=== PATIENT | female | born 1970 | race Caucasian/White ===

== ENCOUNTER → 2018-03-08 13:45 | Outpatient (CLI) | payer BC, SELFPAY ==
--- NOTE | 2018-03-08 | DI.ECHO.S_ITS ---
[facility] +---------+ : : [address] : : : : [id number] : : : : Phone: [phone]+ Echocardiogram Report + + :Name: JERARDO TOM Study Date: 03/08/2018 Height: 67 in : :[facility] Weight: 142 lb : : Gender: Female BSA: 1.7 m2 : :: 1970 Age: 47 yrs BP: 136/78 mmHg: :Reason For Study: Palpitations : : Performed By: Dali Ramos : :Referring: EAN ABBOTT : + + Interpretation Summary 1) Normal left ventricular thickness, size, wall motion, and systolic function (EF 60-65%). 2) Normal right ventricular size and function. 3) No significant valvular abnormalities. 4) No prior Echo available for comparison. Procedure: A two-dimensional transthoracic echocardiogram with color flow and Doppler was performed. The study quality was technically adequate. There is no prior echocardiogram noted for this patient. The patient was in normal sinus rhythm during the exam. Left Ventricle: The left ventricle is normal in size. There is normal left ventricular wall thickness. The ejection fraction is estimated to be 60-65%. Left ventricular systolic function is normal without focal wall motion abnormalities. Right Ventricle: The right ventricle is normal in size and function. Atria: The left atrium is mildly dilated. There has been no significant change since the previous study. The interatrial septum is intact with no evidence for an atrial septal defect. Mitral Valve: The mitral valve is normal in structure and function. There is no mitral regurgitation noted. Aortic Valve: The aortic valve opens well. No aortic regurgitation is present. Tricuspid Valve: The tricuspid valve is normal in structure and function. There is trace tricuspid regurgitation. The right ventricular systolic pressure is estimated at 24 mmHg assuming a right atrial pressure of 3 mm Hg. Pulmonic Valve: The pulmonic valve is not well seen, but is grossly normal. There is no pulmonic valvular regurgitation. Great Vessels: The aortic root is normal size. The dimensions of the ascending aorta are normal. The IVC is of normal diameter and collapses greater than 50% with a sniff. This suggests a low right atrial pressure of 3 mm Hg. Pericardium/ Pleura There is no pericardial effusion. There is no pleural effusion. MMode/2D Measurements & Calculations LVIDd: 4.0 cm Ao root diam: 3.0 cm LVIDs: 2.5 cm Aortic Jxn: 2.6 cm FS: 38.1 % asc Aorta Diam: 2.9 cm IVSd: 0.88 cm Ao Arch Diam (Prox Trans): 2.6 cm LVPWd: 0.73 cm LV pantoja. diameter/BSA (cm/m^2): 2.3 LV sys. diameter/BSA (cm/m^2): 1.4 LA dimension: 3.4 cm RA long axis: 3.9 cm LA A2 area: 21.5 cm2 RA area: 13.4 cm2 LA A4 area: 16.6 cm2 RA vol: 38.8 ml LA length (vol): 4.6 cm RA : 22.2 ml/m2 LA vol: 65.7 ml IVC diam: 1.7 cm LA vol index: 37.6 ml/m2 RVDd major: 5.0 cm RVD1 (basal): 3.4 cm RVD2 (mid): 3.1 cm Doppler Measurements & Calculations Ao V2 max: 117.3 cm/sec TR max maria luisa: 228.9 cm/sec Ao V2 mean: 79.7 cm/sec TR max P.0 mmHg Ao max P.5 mmHg PA V2 max: 79.8 cm/sec Ao mean P.8 mmHg PA V2 mean: 51.8 cm/sec Ao V2 VTI: 25.2 cm PA mean P.3 mmHg Reading Physician:04:51 PM
== END ==
PROVIDERS: Family Provider Family Medicine; PCP Family Medicine; Visit Provider Family Medicine
DX: R00.2 Palpitations (principal)
CPT/HCPCS: 93306

== ENCOUNTER → 2018-04-14 14:37 | Outpatient (CLI) | payer BC, SELFPAY ==
--- NOTE | 2018-04-14 | DI.US.S_ITS ---
PROCEDURE: US PELVIC COMPLETE INDICATIONS: DUB TECHNIQUE: Real-time scanning was performed of the pelvic organs, with image documentation. Additional endovaginal scanning was necessary due to incomplete visualization of the adnexal and endometrial structures by transabdominal scanning. COMPARISON: None. FINDINGS: Transabdominal scanning: Limited scanning through the kidneys shows no hydronephrosis. No pathologic free abdominal or pelvic fluid. Endovaginal scanning: Uterus: Uterus is normal in size at 5.0 x 5.9 x 9.6 cm. The endometrium measures 5.9 mm in combined thickness. There is a midline anterior intramural 2.2 cm fibroid and also a smaller 1.1 cm maximal dimension adjacent fibroid. Ovaries: The right ovary and left ovary appear free of mass lesion. There is a simple cyst at the right ovary measuring 1.2 x 0.8 x 0.9 cm. IMPRESSION: There are 2 small uterine fibroids the largest of which measures up to 2.2 cm. No endometrial mass or abnormal fluid collection is seen. Small simple cyst right ovary measures up to 1.2 cm and otherwise the adnexal structures appear normal. Dictated by: Kirby Burks M.D. on 04/14/2018 at 16:11 Approved by: Kirby Burks M.D. on 04/14/2018 at 16:13
== END ==
PROVIDERS: PCP Family Medicine; Visit Provider Nurse Practitioner Family
DX: N93.8 Other specified abnormal uterine and vaginal bleeding (principal); D25.1 Intramural leiomyoma of uterus; N83.291 Other ovarian cyst, right side; M85.852 Other specified disorders of bone density and structure, left thigh; E07.9 Disorder of thyroid, unspecified
CPT/HCPCS: 76830; 76856; 77080

== ENCOUNTER → 2018-05-21 16:21 | Outpatient (REF) | payer BC, SELFPAY | LOC: LAB 16:21 | PROVIDERS: PCP Family Medicine; Visit Provider Nurse Practitioner Family | DX: N89.8 Other specified noninflammatory disorders of vagina (principal) | CPT/HCPCS: 87077; 87102; 87186 ==

== ENCOUNTER → 2020-04-26 10:41 | Outpatient (CLI) | payer BC, SELFPAY ==
--- NOTE | 2020-04-26 | DI.US.S_ITS ---
PROCEDURE: US THYROID INDICATIONS: Postprocedural hypothyroidism TECHNIQUE: Real-time scanning was performed of the thyroid gland, with image documentation. COMPARISON: [facility], [place], THYROID, 04/09/2017, 10:12. [facility], [place], THYROID, 03/02/2014, 11:10. FINDINGS: Right: Thyroid is absent Left: Thyroid is absent Isthmus: Thyroid isthmus is absent IMPRESSION: No thyroid tissue is identified. No adjacent adenopathy is seen. Dictated by: Kirby Burks M.D. on 04/26/2020 at 12:26 Approved by: Kirby Burks M.D. on 04/26/2020 at 12:27
== END ==
PROVIDERS: PCP Family Medicine; Referring Provider Family Medicine; Visit Provider Student in an Organized Health Care Education/Training Program
DX: E89.0 Postprocedural hypothyroidism (principal)
CPT/HCPCS: 76536

== ENCOUNTER → 2021-12-31 10:09 | Outpatient (CLI) | payer BC, SELFPAY ==
--- NOTE | 2021-12-31 | DI.MG.S_ITS ---
BILATERAL DIGITAL SCREENING MAMMOGRAM 3D/2D WITH CAD WITH AUGMENTATION: 12/31/2021 CLINICAL: Routine screening. Family history of breast cancer. Comparison is made to exams dated: 04/09/2017 mammogram, 02/22/2016 mammogram, and 11/02/2013 mammogram - [facility]. The tissue of both breasts is heterogeneously dense. This may lower the sensitivity of mammography. Current study was also evaluated with a Computer Aided Detection (CAD) system. Bilateral breast implants are stable and intact. No significant masses, calcifications, or other findings are seen in either breast. There has been no significant interval change. IMPRESSION: NEGATIVE There is no mammographic evidence of malignancy. A 1 year screening mammogram is recommended. This exam was interpreted at Station ID: [id number]. NOTE: For mammograms, a report in lay terms will be sent to the patient. Approximately 15% of breast malignancies will not be visualized mammographically. In the management of a palpable breast mass, a negative mammogram must not discourage biopsy of a clinically suspicious lesion. Electronically Signed By: Sheila pagan/karl:12/31/2021 12:51:21 letter sent: Normal Exam ACR BI-RADS Category 1: Negative 3341F
== END ==
PROVIDERS: PCP Family Medicine; Referring Provider Family Medicine; Visit Provider Family Medicine
DX: Z12.31 Encounter for screening mammogram for malignant neoplasm of breast (principal); Z80.3 Family history of malignant neoplasm of breast
CPT/HCPCS: 77063; 77067

== ENCOUNTER → 2022-09-01 09:23 | Outpatient (CLI) | payer BC, SELFPAY ==
[2022-09-01 09:47] LABS: COVID19 -Nasal RAPID Negative (Negative)
== END ==
PROVIDERS: PCP Family Medicine; Visit Provider Surgery
DX: Z01.812 Encounter for preprocedural laboratory examination (principal); Z20.822 Contact with and (suspected) exposure to COVID-19
CPT/HCPCS: 87635; C9803

== ENCOUNTER 2022-10-21 07:36 | Day surgery (SDC) | payer BC, SELFPAY ==
[2022-10-21 07:53] VITALS: BP 135/85; PULSE 111; RESP 18; TEMP 37.1; O2SAT 100; BMI 23.1
[2022-10-21] MEDS: LACTATED RINGERS 1,000 ML 42 ML IV (08:16)
[2022-10-21] MEDS: SUMAtriptan 25 MG TABLET PO (08:48)
--- NOTE | 2022-10-21 09:43 | PM.HP.1 ---
History of Present Illness History of Present Illness Date Patient Seen: 10/21/22 Time Patient Seen: 09:43 Chief complaint: Colonoscopy Narrative: The patient presents for colorectal screening. They have never had any previous examination for such. No personal or family history of colon cancer. On further history denies any recent gastrointestinal symptoms. No nausea, vomiting, abdominal pain, loss of appetite, unexplained weight loss, change in bowel habits, or blood per rectum. Patient History Medical History Hypothyroid Migraines Thyroid cancer Surgical History History of appendectomy Family & Social History Social History: household members spouse Tobacco & Substance use: Smoking Status Never smoker alcohol intake frequency holiday/special occasion Substance Use Type does not use Meds Home Medications and Allergies Home Medications Medication Instructions Recorded Confirmed Type fluticasone propionate 50 0 intranasal BID ##16 10/21/16 Rx mcg/actuation nasal spray,suspension ondansetron 4 mg disintegrating 4 mg PO Q8H PRN nausea and 09/19/22 Rx tablet vomiting #4 tabs sodium sul 1.479 gram-potas ch See Rx Instructions PO PER PKG DIR 09/19/22 Rx 0.188 gram-magnes sul 0.225 gram #24 tabs tablet (Sutab) levothyroxine 175 mcg tablet See Rx Instructions .Route .COMPLEX 10/21/22 10/21/22 History (Synthroid) Allergies Allergy/AdvReac Type Severity Reaction Status Date / Time No Known Drug Allergies Allergy Verified 10/21/22 08:14 Exam Vital Signs (past 8 hours): - 10/21/22 07:53 Temperature 98.7 F Pulse Rate 111 H Respiratory Rate 18 Blood Pressure 135/85 Pulse Oximetry 100 Oxygen Delivery Method Room Air Oxygen Delivery Method Room Air Narrative Exam Narrative: General adult woman alert oriented no acute distress Assessment & Plan Assessment & Plan narrative: The patient requires colorectal screening and colonoscopy is recommended. Technical details were discussed. Risks, benefits, alternatives explained. Risks including but not limited to myocardial infarction, aspiration, bleeding, pain, missed lesion, incomplete examination, need for further radiographic studies, colonic perforation, and need for major abdominal surgery were discussed. All questions were answered to their satisfaction, and they are in agreement with this plan. Time Spent With Patient Critical Care time: I spent a total of [] minutes of critical care time on this patient's care today; this time is exclusive of procedural time.
--- NOTE | 2022-10-21 09:44 | PM.OP.COLON ---
Operative Date/Time/Diagnoses Date of procedure: 10/21/22 Time of procedure: 09:44 Pre-op diagnosis: Colorectal screening Post-op diagnosis: same Procedure & Clinicians Study performed: Colonoscopy Same procedure as scheduled: Yes Indications: Colorectal screening Surgeon: Rod Funes Procedure Notes Procedure in detail: The history and physical was performed/updated and the patient is ASA class is 2. The procedure was discussed in detail with the patient. Potential risks complications including infection, bleeding, missed diagnosis, perforation, need for surgery, and were explained. Their questions were answered and informed consent was obtained. Patient was brought to the procedure room and placed standard monitoring equipment. The patient's vital signs were monitored continuously throughout the entire procedure. Prior to starting time-out was performed. The patient was placed in the left lateral recumbent position. Procedural sedation was administered by anesthesia. Examination began with a thorough inspection of the perianal area there was no evidence of fissures, fistulae, external hemorrhoids or cutaneous malignancy. The colonoscopy scope was then placed into the anal canal and was advanced to the cecum, which was identified by the ileocecal valve, the appendiceal orifice and the confluence of the taenia. The scope was then slowly withdrawn examining colon thoroughly in all directions, irrigating it of any residual stool. The right colon was notable for significant tortuosity. Scope stiffener and manual pressure or required. Normal healthy colon. No masses polyps or inflammation The patient tolerated the procedure well. They will be discharged once criteria are met. The prep was of good/excellent quality. The withdrawl time was 6 minutes. Specimen(s): none sent Impression: Normal colonoscopy Post-procedure Recommendations: Colonoscopy in 10 years and High fiber diet Disposition: same day surgery
[2022-10-21 10:16] VITALS: BP 115/73; PULSE 83; RESP 16; TEMP 36.4; O2SAT 97
[2022-10-21 10:22] VITALS: BP 110/76; PULSE 77; RESP 18; O2SAT 100
[2022-10-21 10:26] VITALS: BP 113/76; PULSE 71; RESP 16; O2SAT 100
[2022-10-21 10:28] VITALS: BP 115/85; PULSE 89; RESP 16; TEMP 36.5; O2SAT 97
== END 2022-10-21 10:48 | disposition home or self-care (01) ==
PROVIDERS: PCP Family Medicine; Referring Provider Surgery; Visit Provider Surgery
PROC: 0DJD8ZZ Inspection of Lower Intestinal Tract, Via Natural or Artificial Opening Endoscopic (ICD-10-PCS; CPT 45378; principal; 2022-10-21 08:45)
DX: Z12.11 Encounter for screening for malignant neoplasm of colon (principal)
CPT/HCPCS: 45378; J2704

== ENCOUNTER → 2022-10-23 12:01 | Outpatient (CLI) | payer BC, SELFPAY ==
--- NOTE | 2022-10-23 | DI.RAD.S_ITS ---
PROCEDURE: XR ELBOW LT MIN 3V INDICATIONS: left elbow pain TECHNIQUE: 3 views of the elbow were acquired. COMPARISON: None. FINDINGS: Bones: No fractures or dislocations. No suspicious bony lesions. Soft tissues: No elbow joint effusion. No suspicious soft tissue calcifications. IMPRESSION: No evidence acute bony abnormality of the left elbow. If clinical suspicion and/or symptoms persist, further assessment with repeat plain films, or advanced imaging (e.g., CT, MRI, or bone scan) may be helpful for further assessment. Dictated by: Mikey Torres M.D. on 10/23/2022 at 15:24 Approved by: Mikey Torres M.D. on 10/23/2022 at 15:25
== END ==
PROVIDERS: PCP Family Medicine; Referring Provider Family Medicine; Visit Provider Family Medicine
DX: M25.522 Pain in left elbow (principal)
CPT/HCPCS: 73080

== ENCOUNTER → 2023-04-06 11:09 | Outpatient (CLI) | payer BC, SELFPAY ==
--- NOTE | 2023-04-06 11:11 | DI.MG.S_ITS ---
BILATERAL DIGITAL SCREENING MAMMOGRAM 3D/2D WITH CAD WITH AUGMENTATION: 04/06/2023 CLINICAL: Routine screening. Family history of breast cancer. Comparison is made to exams dated: 12/31/2021 mammogram, 04/29/2017 mammogram, 04/09/2017 mammogram, and 02/22/2016 mammogram - [facility]. Both breasts are heterogeneously dense, which may obscure small masses (category c / 51-75% glandular tissue). Current study was also evaluated with a Computer Aided Detection (CAD) system. Bilateral breast implants are stable. No significant masses, calcifications, or other findings are seen in either breast. There has been no significant interval change. IMPRESSION: NEGATIVE There is no mammographic evidence of malignancy. A 1 year screening mammogram is recommended. Based on the Tyrer Cuzick model (a risk assessment model) the patient's lifetime risk is 11.4% and her 10 year risk is 3.1%. According to the ACR, ACS, and NCCN guidelines, an annual breast MRI exam along with mammogram is recommended if the patient's lifetime risk is 20% or greater. This exam was interpreted at Station ID: [id number]. NOTE: For mammograms, a report in lay terms will be sent to the patient. Approximately 15% of breast malignancies will not be visualized mammographically. In the management of a palpable breast mass, a negative mammogram must not discourage biopsy of a clinically suspicious lesion. Electronically Signed By: Maria M mcgee/karl:04/06/2023 14:53:43 letter sent: Normal Exam ACR BI-RADS Category 1: Negative [id number]
== END ==
PROVIDERS: PCP Family Medicine; Referring Provider Family Medicine; Visit Provider Family Medicine
DX: Z12.31 Encounter for screening mammogram for malignant neoplasm of breast (principal); Z80.3 Family history of malignant neoplasm of breast
CPT/HCPCS: 77063; 77067

== ENCOUNTER → 2024-05-05 13:59 | Outpatient (CLI) | payer BC, SELFPAY ==
--- NOTE | 2024-05-05 | DI.MG.S_ITS ---
BILATERAL DIGITAL SCREENING MAMMOGRAM 3D/2D WITH CAD WITH AUGMENTATION: 05/05/2024 CLINICAL: Routine screening. Family history of breast cancer. Comparison is made to exams dated: 04/06/2023 mammogram, 12/31/2021 mammogram, and 04/09/2017 mammogram - [facility]. The breasts are heterogeneously dense, which may obscure small masses (category c / 51-75% glandular tissue). Current study was also evaluated with a Computer Aided Detection (CAD) system. Bilateral breast implants are stable. There is a possible oval focal asymmetry with an obscured margin in the right breast at 4 o'clock anterior depth. No other significant masses, calcifications, or other findings are seen in either breast. IMPRESSION: INCOMPLETE: NEED ADDITIONAL IMAGING EVALUATION The possible oval focal asymmetry in the right breast is indeterminate. Additional views with possible ultrasound are recommended. Based on the Tyrer Cuzick model (a risk assessment model) the patient's lifetime risk is 11.3% and her 10 year risk is 3.3%. According to the ACR, ACS, and NCCN guidelines, an annual breast MRI exam along with mammogram is recommended if the patient's lifetime risk is 20% or greater. This exam was interpreted at Station ID: [id number]. NOTE: For mammograms, a report in lay terms will be sent to the patient. Approximately 15% of breast malignancies will not be visualized mammographically. In the management of a palpable breast mass, a negative mammogram must not discourage biopsy of a clinically suspicious lesion. Electronically Signed By: Oswald Blakely M.D. aty/:05/05/2024 18:17:03 letter sent: Additional Imaging Needed ACR BI-RADS Category 0: Incomplete: Need Additional Imaging Evaluation 3340F
== END ==
LOC: MAMMO 13:59
PROVIDERS: PCP Registered Nurse; Referring Provider Registered Nurse; Visit Provider Registered Nurse
DX: Z12.31 Encounter for screening mammogram for malignant neoplasm of breast (principal); Z80.3 Family history of malignant neoplasm of breast; R92.333 Mammographic heterogeneous density, bilateral breasts; Z98.82 Breast implant status
CPT/HCPCS: 77063; 77067

== ENCOUNTER → 2024-05-17 | Outpatient (CLI) | payer BC, SELFPAY ==
--- NOTE | 2024-05-17 09:18 | DI.MG.S_ITS ---
UNILATERAL RIGHT DIGITAL DIAGNOSTIC MAMMOGRAM 3D/2D WITH ADDITIONAL VIEWS: 05/17/2024 CLINICAL: Additional evaluation requested from prior study. Comparison is made to exams dated: 05/05/2024 mammogram, 04/06/2023 mammogram, and 12/31/2021 mammogram - [facility]. The breasts are heterogeneously dense, which may obscure small masses (category c / 51-75% glandular tissue). There is a possible focal asymmetry in the right breast at 4 o'clock anterior depth. This is not seen in additional views. No other significant masses or calcifications are seen in the breast. IMPRESSION: INCOMPLETE: NEED ADDITIONAL IMAGING EVALUATION The possible focal asymmetry in the right breast is indeterminate. A targeted ultrasound is recommended and will immediately follow. Based on the Tyrer Cuzick model (a risk assessment model) the patient's lifetime risk is 11.3% and her 10 year risk is 3.3%. According to the ACR, ACS, and NCCN guidelines, an annual breast MRI exam along with mammogram is recommended if the patient's lifetime risk is 20% or greater. This exam was interpreted at Station ID: [id number]. NOTE: For mammograms, a report in lay terms will be sent to the patient. Approximately 15% of breast malignancies will not be visualized mammographically. In the management of a palpable breast mass, a negative mammogram must not discourage biopsy of a clinically suspicious lesion. Electronically Signed By: Austin Fernandez M.D. slc/:05/17/2024 10:03:21 ACR BI-RADS Category 0: Incomplete: Need Additional Imaging Evaluation
--- NOTE | 2024-05-17 09:18 | DI.US.S_ITS ---
LIMITED ULTRASOUND OF RIGHT BREAST AND AXILLA: 05/17/2024 CLINICAL: Patient returns today to evaluate a focal asymmetry in the right breast. Comparison is made to exams dated: 05/17/2024 mammogram, 05/05/2024 mammogram, 04/06/2023 mammogram, and 12/31/2021 mammogram - [facility]. Real-time ultrasound of the right breast 3-5 o'clock, and axilla regions was performed. Nuñez scale images of the real-time examination were reviewed. No significant abnormalities were seen sonographically in the right breast or the right axilla. IMPRESSION: NEGATIVE There is no sonographic evidence of malignancy. No enlarged right axillary lymph nodes. Exam findings were conveyed to the patient. A 1 year screening mammogram is recommended. This exam was interpreted at Station ID: [id number]. Electronically Signed By: Austin Fernandez M.D. slc/:05/17/2024 10:19:04 letter sent: Normal Exam ACR BI-RADS Category 1: Negative
== END ==
LOC: MAMMO 09:17
PROVIDERS: PCP Registered Nurse; Referring Provider Registered Nurse; Visit Provider Registered Nurse
DX: R92.8 Other abnormal and inconclusive findings on diagnostic imaging of breast (principal); R92.333 Mammographic heterogeneous density, bilateral breasts
CPT/HCPCS: 76642; 77065; G0279

== ENCOUNTER → 2024-08-29 10:35 | Outpatient (CLI) | payer BC, SELFPAY ==
--- NOTE | 2024-08-29 10:37 | DI.RAD.S_ITS ---
PROCEDURE: XR DEXA AXIAL SKELETON INDICATIONS: OSTEOPOROSIS SCREENING COMPARISON: None. FINDINGS: Lumbar Spine: Bone mineral density 0.896 g/cm2, T score -1.4. Left Hip: Bone mineral density 0.796 g/cm2, T score -1.2, previously 0.778. Left Femoral Neck: Bone mineral density 0.602 g/cm2, T score -2.2, previously 0.642. Right Hip: Bone mineral density 0.783 g/cm2, T score -1.3, previously -1.3. Right Femoral Neck: Bone mineral density 0.586 g/cm2, T score -2.4, previously -1.9. Fracture Risk Calculation (when applicable): 10-year fracture risk of a major osteoporotic fracture 8.8 percent and of a hip fracture 1.4 percent. (T score greater or equal to -1.0 to: NORMAL) (T score from -1.1 to -2.4: OSTEOPENIA) (T score less than or equal to -2.5: OSTEOPOROSIS) IMPRESSION: Osteopenia. Follow-up guidelines as follows: Osteoporosis: Consider a repeat DEXA and Vertebral Fracture Assessment (VFA) exam in 2 years or sooner if medically necessary, to reassess this patient's status. Osteopenia: Consider a repeat DEXA in 2-3 years to reassess this patient's status, or if there is a new clinical indication. Normal: Consider a repeat DEXA in 5 years or sooner, or if there is a new clinical indication. All treatment decisions require clinical judgment and consideration of individual patient factors, including patient preferences, comorbidities, previous drug use, risk factors not captured in the FRAX model (e.g., frailty, falls, vitamin D deficiency, increased bone turnover, interval significant decline in bone density ) and possible under- or over-estimation of fracture risk by FRAX. In addition, the NOF Guide recommends that FDA-approved medical therapies be considered in postmenopausal women and men age >= 50 years with a: * Hip or vertebral (clinical or morphometric) fracture * T-score of <=-2.5 at the spine or hip * Ten-year fracture probability by FRAX of >= 3% for hip fracture or >=20% for major osteoporotic fracture. People with diagnosed cases of osteoporosis or at high risk for fracture should have regular bone mineral density tests. For patients eligible for Medicare, routine testing is allowed once every 2 years. The testing frequency can be increased to one year for patients who have rapidly progressing disease, those who are receiving or discontinuing medical therapy to restore bone mass, or have additional risk factors. Dictated by: Steve Jay M.D. on 08/29/2024 at 13:45 Approved by: Steve Jay M.D. on 08/29/2024 at 13:48
== END ==
PROVIDERS: PCP Registered Nurse; Referring Provider Registered Nurse; Visit Provider Registered Nurse
DX: M85.89 Other specified disorders of bone density and structure, multiple sites (principal)
CPT/HCPCS: 77080

== ENCOUNTER → 2025-05-06 09:17 | Outpatient (CLI) | payer BC, SELFPAY ==
--- NOTE | 2025-05-06 09:18 | DI.MG.S_ITS ---
MM screening mammo implant BI: 05/06/2025. BI-RADS: 0 CLINICAL: 54-year old female for bilateral screening mammogram. Tyrer-Cuzick lifetime risk of 11.6%. No personal or first-degree family history of breast cancer. Current reported family history of breast cancer: paternal grandmother. The patient has bilateral implants. PRIOR EXAMS 05/17/2024, 05/05/2024, 04/06/2023, 12/31/2021. MAMMOGRAPHY TECHNIQUE: 2D and 3D (tomosynthesis) digital mammographic views obtained, with additional images as needed for full coverage. Current study was also evaluated with a Computer Aided Detection (CAD) system. DENSITY C. The breasts are heterogeneously dense, which may obscure small masses. IMPLANTS Right: Breast implant present on the right. Left: Breast implant present on the left. MAMMOGRAPHY FINDINGS Right: There are no suspicious masses, calcifications, or other findings in the breast. Left: MLO only, Upper, Middle depth: Asymmetry needing additional imaging evaluation. IMPRESSION: Right * No evidence of malignancy with benign findings. Left (Asymmetry): MLO only, Upper, Middle depth * Incomplete - asymmetry needing additional imaging evaluation. RECOMMENDATIONS Left: MLO only, Upper, Middle depth * Further evaluation with diagnostic mammography and diagnostic ultrasound. Ultrasound to be performed only if needed. OVERALL ASSESSMENT CATEGORY BI-RADS-0: Incomplete - Need Additional Imaging Evaluation. ELECTRONICALLY SIGNED: Paige Falcon M.D. on 05/08/2025 at 08:46:48 AM PT Interpreting Station ID: [id number]
== END ==
LOC: MAMMO 09:17
PROVIDERS: PCP Registered Nurse; Referring Provider Registered Nurse; Visit Provider Registered Nurse
DX: Z12.31 Encounter for screening mammogram for malignant neoplasm of breast (principal); R92.333 Mammographic heterogeneous density, bilateral breasts; Z80.3 Family history of malignant neoplasm of breast; Z98.82 Breast implant status
CPT/HCPCS: 77063; 77067

== ENCOUNTER → 2025-05-25 09:23 | Outpatient (CLI) | payer BC, SELFPAY ==
--- NOTE | 2025-05-25 09:24 | DI.MG.S_ITS ---
US breast LT limited, MM diagnostic mammo implant LT: 05/25/2025 BI-RADS: 4 CLINICAL: 54-year old female for left diagnostic mammogram and left diagnostic breast ultrasound that is a recall from screening on 05/06/2025. Tyrer-Cuzick lifetime risk of 11.6%. No personal or first-degree family history of breast cancer. Current reported family history of breast cancer: paternal grandmother. The patient has bilateral implants. PRIOR EXAMS 05/06/2025, 05/17/2024, 05/05/2024, 04/06/2023, 12/31/2021, 04/29/2017, 04/09/2017, 02/22/2016. MAMMOGRAPHY TECHNIQUE: 2D and 3D (tomosynthesis) digital mammographic views obtained, with additional images as needed for full coverage. Current study was also evaluated with a Computer Aided Detection (CAD) system. ULTRASOUND TECHNIQUE Real-time marrufo scale and color doppler imaging of the area of clinical interest was performed with image documentation. Left targeted breast ultrasound of the area of clinical interest and the axilla was performed with image documentation. DENSITY Left: C. The breast is heterogeneously dense, which may obscure small masses. MAMMOGRAPHY FINDINGS Left (finding-1): Lower Outer Quadrant, Middle depth, measuring 1.3cm: There is a visually obscured, irregular, equal-density mass present. Left (finding-2): MLO only, Upper, Middle depth: The asymmetry seen on recent screening mammogram did not persist with additional imaging and is consistent with superimposition of normal breast tissue. ULTRASOUND FINDINGS Left (finding-1): Lower Outer at 4:00, 1.5 cm from nipple, measuring 1.5 x 0.9 x 1.3 cm: Correlating with findings on mammogram there is an irregularly shaped, spiculated, hypoechoic mass. Doppler shows internal vascularity. Left (finding-2): Upper Outer Quadrant: The area from 12 to 3 o'clock, 3 cm from the nipple was scanned. There are incidental subcentimeter benign cysts at 12 o'clock, 3 cm from the nipple. There is no sonographic correlate for the previously seen asymmetry on screening mammogram. Left: Axilla: No abnormal lymph nodes are seen in the axilla. IMPRESSION: Left (Mass): Lower Outer at 4:00, 1.5 cm from nipple, measuring 1.5 x 0.9 x 1.3 cm * Suspicious findings with likelihood of malignancy. RECOMMENDATIONS Left: Lower Outer at 4:00, 1.5 cm from nipple * Ultrasound-guided biopsy for further evaluation. COMMENTS: Findings and recommendations were conveyed to the patient during today's evaluation over the phone by Dr. Falcon. OVERALL ASSESSMENT CATEGORY BI-RADS-4: Suspicious. ELECTRONICALLY SIGNED: Paige Falcon M.D. on 05/25/2025 at 11:36:10 AM PT Interpreting Station ID: [id number]
== END ==
LOC: MAMMO 09:23
PROVIDERS: PCP Registered Nurse; Referring Provider Registered Nurse; Visit Provider Registered Nurse
DX: R92.8 Other abnormal and inconclusive findings on diagnostic imaging of breast (principal); N63.23 Unspecified lump in the left breast, lower outer quadrant; Z80.3 Family history of malignant neoplasm of breast; R92.332 Mammographic heterogeneous density, left breast
CPT/HCPCS: 76642; 77065; G0279

== ENCOUNTER → 2025-06-12 10:54 | Outpatient (CLI) | payer BC, SELFPAY ==
--- NOTE | 2025-06-12 10:56 | DI.MG.S_ITS ---
MM clip placement LT: 06/12/2025. BI-RADS: None
--- NOTE | 2025-06-12 10:56 | DI.US.S_ITS ---
US bx breast perc w vac device: 06/12/2025. Rad-Path Correlation: Pending
== END ==
PROVIDERS: PCP Registered Nurse; Referring Provider Registered Nurse; Visit Provider Registered Nurse
DX: C50.512 Malignant neoplasm of lower-outer quadrant of left female breast (principal); R92.332 Mammographic heterogeneous density, left breast; Z17.0 Estrogen receptor positive status [ER+]; Z17.21 Progesterone receptor positive status; Z80.3 Family history of malignant neoplasm of breast; Z98.82 Breast implant status
CPT/HCPCS: 19083; 77065